=== PATIENT | female | born 1935 | race Caucasian/White ===

== ENCOUNTER 2017-04-20 14:24 | Outpatient (CLI) | payer MEDICARE, OTHER ==
--- NOTE | 2017-04-22 09:04 | DEXA Report ---
DEXA SCAN: 04/20/2017 CLINICAL INDICATION: Postmenopausal osteopenia. TECHNIQUE: Dual energy x-ray absorptiometry (DXA) was performed on a [employer] system. Regions measured are the AP spine, femoral neck, and, if needed, forearm. COMPARISON: None. In accordance with the International Society for Clinical Densitometry (ISCD) guidelines, data from previous exams may be reanalyzed using current recommendations and techniques. This is done to allow a more accurate basis for comparison with the current study. FINDINGS: The data for the lumbar spine is as follows: REGION BMD (g/cm/cm) T-SCORE Z-SCORE L1 0.888 -2.0 0.2 L2 0.984 -1.8 0.4 L3 0.994 -1.7 0.5 L4 0.742 -3.8 -1.6 TOTAL 0.903 -2.3 -0.1 NOTE: All evaluable vertebrae are used for classification. The data for the hip is as follows: REGION BMD (g/cm/cm) T-SCORE Z-SCORE Neck 0.742 -2.1 0.3 TOTAL 0.761 -2.0 0.3 NOTE: The femoral neck or total proximal femur, whichever is lowest, is used for classification. * Denotes significant change at the 95% confidence level. Denotes dissimilar scan types or analysis methods. IMPRESSION: THE WHO CLASSIFICATION BASED ON THE INTERNATIONAL REFERENCE STANDARD IS OSTEOPENIA. THE FRACTURE RISK IS INCREASED. RECOMMENDATION: Patients with diagnosis of osteoporosis or osteopenia should have regular bone mineral density assessment. For those eligible for Medicare, routine testing is allowed once every 2 years. Testing frequency can be increased for patients who have rapidly progressing disease or for those who are receiving medical therapy to restore bone mass. COMMENT: World Health Organization (WHO) definitions for osteoporosis and osteopenia: NORMAL BMD: T-score at -1.0 or higher, fracture risk is low. OSTEOPENIA BMD: T-score between -1.0 and -2.5, fracture risk is increased. OSTEOPOROSIS BMD: T-score at -2.5 or lower, fracture risk high. National Osteoporosis Foundation recommends: 1. Obtain adequate dietary calcium (at least 1200 mg per day) and vitamin D (400 -800 international units per day). 2. Participate, as appropriate, in regular weightbearing and muscle- strengthening exercise. 3. Avoid tobacco use and reduce alcohol and caffeine intake. 4. For more detailed information see the website at www.NOF.org. MTDD
== END 2017-04-20 14:25 | disposition home or self-care (01) ==
LOC: DI 14:24
PROVIDERS: ATTEND Internal Medicine
DX: M85.89 Other specified disorders of bone density and structure, multiple sites (principal)
CPT/HCPCS: 77080

== ENCOUNTER 2018-12-20 11:31 | Outpatient (CLI) | payer MEDICARE | END 2018-12-20 11:32 | disposition critical access hospital (66) | LOC: EMS 11:31 | PROVIDERS: ATTEND Surgery | DX: R41.0 Disorientation, unspecified (principal); R19.7 Diarrhea, unspecified; R42 Dizziness and giddiness | CPT/HCPCS: A0425; A0427 ==

== ENCOUNTER 2018-12-20 12:05 | Emergency (ER) | payer MEDICARE, OTHER ==
[2018-12-20 13:01] LABS: GLUCOSE, URINE (UA) 250 mg/dL (NEGATIVE); KETONES,URINE (UA) >=80 mg/dL (NEGATIVE); LEUKOCYTE ESTERASE, URINE NEGATIVE (NEGATIVE); NITRITE,URINE NEGATIVE (NEGATIVE); OCCULT BLOOD,URINE SMALL (NEGATIVE); PH,URINE 5.5 PH (5.0-7.5); PROTEIN,URINE TRACE mg/dL (NEGATIVE); UROBILINOGEN,URINE 0.2 (NORMAL) E.U./dL (NORMAL)
[2018-12-20] MEDS ORDERED: SODIUM CHLORIDE 0.9% 1,000 ML IV ONE (13:13)
[2018-12-20 13:15] LABS: BASOPHILS % (AUTO) 0.6 %; EOSINOPHILS % (AUTO) 0.1 %; HGB - HEMOGLOBIN 12.7 g/dL (12.0-16.0); LYMPHOCYTES # (AUTO) 1.2 10^3/uL (1.5-3.5); LYMPHOCYTES % (AUTO) 35.7 %; MEAN CORPUSCULAR HEMOGLOBIN 30.3 pg (27.0-31.0); MEAN CORPUSCULAR HGB CONC 34.8 g/dL (32.0-36.0); MEAN CORPUSCULAR VOLUME 87.1 fL (81.0-99.0); MEAN PLATELET VOLUME 7.5 fL (7.9-10.8); MONOCYTES # (AUTO) 0.5 10^3/uL (0.0-1.0); MONOCYTES % (AUTO) 13.5 %; NEUTROPHILS # (AUTO) 1.7 10^3/uL (1.5-6.6); NEUTROPHILS % (AUTO) 50.1 %; PLT - PLATELET COUNT 146 10^3/uL (130-450); RED BLOOD COUNT 4.19 10^6/uL (4.20-5.40); RED CELL DISTRIBUTION WIDTH 12.1 % (12.0-15.0); WHITE BLOOD COUNT 3.5 x10^3/uL (4.8-10.8)
[2018-12-20 13:16] LABS: CLARITY,URINE HAZY (CLEAR)
[2018-12-20 13:22] LABS: BILIRUBIN,URINE NEGATIVE (NEGATIVE); ICTOTEST,URINE NEGATIVE
[2018-12-20 13:30] LABS: ALBUMIN 3.8 g/dL (3.2-5.5); ALBUMIN/GLOBULIN RATIO 1.1 (1.0-2.2); BILIRUBIN,TOTAL 0.8 mg/dL (0.2-1.0); CALCIUM 8.6 mg/dL (8.5-10.3); CREATININE 0.6 mg/dL (0.4-1.0); TOTAL PROTEIN 7.2 g/dL (6.7-8.2)
--- NOTE | 2018-12-20 13:39 | ED Physician Documentation ---
PD HPI ALTERED MENTAL STATUS - Stated complaint Stated Complaint: ALOC - Chief complaint Chief Complaint: Neuro - History obtained from History obtained from: Patient, EMS - History of Present Illness Timing - onset: Today Quality / character: Less responsive, Confused Contributing factors: Known psych illness (Bipolar disorder.) Basline status: Alert and oriented X 3, Ambulatory Treatment [employer]: D50 Similar symptoms before: Has not had sx before - Treatment prior to arrival Treatment prior to arrival: D50W IV. - Additional information Additional information: The patient is an 83-year-old female who arrives via ambulance after she was found this morning by her son to be confused and less responsive than usual. Her , who normally helps her with her medications was hospitalized 2 days ago, and the patient has been alone in their home since that time. She has a history of bipolar disorder, but has not taken her medication for the past 2 days. She also has not been eating, and reports that she has felt cold. When paramedics arrived they found her blood sugar low at 69. They treated her with one half amp of D50 W, and her mental status improved. She does not have history of diabetes. She denies any recent traumatic injury. She denies headache, chest pain, shortness of breath, nausea or vomiting. She denies history of similar symptoms in the past. Review of Systems Constitutional: reports: Chills, Fatigue. denies: Fever Eyes: denies: Decreased vision Ears: denies: Tinnitus/ringing Nose: denies: Congestion Throat: denies: Sore throat Cardiac: denies: Chest pain / pressure Respiratory: denies: Dyspnea, Cough GI: denies: Abdominal Pain, Nausea, Vomiting : denies: Dysuria Skin: denies: Rash Musculoskeletal: denies: Extremity pain Neurologic: reports: Generalized weakness, Altered mental status. denies: Focal weakness, Numbness, Headache PD PAST MEDICAL HISTORY - Past Medical History Cardiovascular: None Respiratory: None Psych: Bipolar disorder - Allergies Allergies/Adverse Reactions: Allergies Allergy/AdvReac Type Severity Reaction Status Date / Time No Known Drug Allergies Allergy Verified 12/20/18 12:19 - Living Situation Living Situation: reports: With spouse/s.o. Living Arrangement: reports: At home - Social History Does the pt smoke?: No Smoking Status: Never smoker PD ED PE NORMAL - Vitals Vital signs reviewed: Yes (normal) - General General: Alert and oriented X 3, Well developed/nourished, Other (Appears slightly drowsy.) - HEENT HEENT: Atraumatic, PERRL, EOMI, Pharynx benign, Other (Buccal mucosa dry.) - Neck Neck: Supple, no meningeal sign, No adenopathy, No JVD - Cardiac Cardiac: RRR, No murmur - Respiratory Respiratory: No respiratory distress, Clear bilaterally - Abdomen Abdomen: Soft, Non tender - Back Back: No CVA TTP - Derm Derm: No rash - Extremities Extremities: No edema, No calf tenderness / cord - Neuro Neuro: Alert and oriented X 3, No motor deficit, No sensory deficit Eye Opening: Spontaneous Motor: Obeys Commands Verbal: Oriented GCS Score: 15 Results - Vitals Vitals: Vital Signs - 24 hr 12/20/18 12/20/18 12/20/18 12:15 12:26 14:18 Temperature 36.3 C L Heart Rate 68 85 68 Respiratory 14 15 14 Rate Blood Pressure 137/82 H 137/82 H 130/68 O2 Saturation 99 97 98 12/20/18 16:00 Temperature Heart Rate 71 Respiratory 14 Rate Blood Pressure 133/65 H O2 Saturation 98 Oxygen O2 Source Room air - EKG (time done) 13:14 Rate: Rate (enter#) (74) Rhythm: NSR, Other (supraventricular bigeminy) [place]: Normal Intervals: Normal SC Ischemia: Non specific changes Computer interpretation: Agree with computer - Labs Labs: Laboratory Tests 12/20/18 12/20/18 12/20/18 12:47 13:07 13:07 WBC 3.5 L RBC 4.19 L Hgb 12.7 Hct 36.5 L MCV 87.1 MCH 30.3 MCHC 34.8 RDW 12.1 Plt Count 146 MPV 7.5 L Neut # (Auto) 1.7 Lymph # (Auto) 1.2 L [place] # (Auto) 0.5 Eos # (Auto) 0.0 Baso # (Auto) 0.0 Absolute Nucleated RBC 0.00 Nucleated RBC % 0.1 Sodium 138 Potassium 3.4 L Chloride 100 L Carbon Dioxide 29 Anion Gap 9.0 BUN 24 H Creatinine 0.6 Estimated GFR (MDRD) 96 Glucose 135 H Calcium 8.6 Total Bilirubin 0.8 AST 44 H ALT 20 Alkaline Phosphatase 48 Total Protein 7.2 Albumin 3.8 Globulin 3.4 Albumin/Globulin Ratio 1.1 Lipase 30 Urine Color YELLOW Urine Clarity HAZY Urine pH 5.5 Ur Specific [place] >=1.030 H Urine Protein TRACE Urine Glucose (UA) 250 H Urine Ketones >=80 H Urine Occult Blood SMALL H Urine Nitrite NEGATIVE Urine Bilirubin NEGATIVE Urine Urobilinogen 0.2 (NORMAL) Ur Leukocyte Esterase NEGATIVE Urine RBC 0-5 Urine WBC 4-5 Ur Squamous Epith Cells FEW Squamous Urine Bacteria Few Urine Mucus Few Strands Ur Microscopic Review INDICATED Urine Culture Comments NOT INDICATED PD MEDICAL DECISION MAKING - ED course Complexity details: reviewed results, re-evaluated patient, considered differential, d/w patient, d/w ux consultant ED course: The patient's presentation is most consistent with altered mental status secondary to hypoglycemic episode and dehydration. Her presentation does not suggest sepsis, meningitis, intracranial hemorrhage, or hypoxemic event. Fingerstick blood sugar upon arrival was greater than 100 after receiving D50 W by medics. Her CBC and chemistry panel are unremarkable except for elevated BUN/creatinine ratio, with a BUN 24 and creatinine 0.6, consistent with dehydration. Urinalysis reveals concentrated urine, and glucose of 250. Treatment in the emergency department included administration of normal saline 1 L IV. Her mental status improved after the above treatment. She diminishes ability to ambulate without lightheadedness. I consulted medical staff assistant regarding disposition. Her is scheduled to be discharged from the hospital tomorrow. It was decided that she could sleep in her 's hospital room overnight until his discharge tomorrow. Departure - Departure Disposition: 01 Home, Self Care Clinical Impression: Hypoglycemia, Dehydration Altered mental status Qualifiers: Altered mental status type: transient alteration of awareness Qualified Code(s): R40.4 - Transient alteration of awareness Condition: Stable Instructions: ED Dehydration, ED Blood Sugar Low Non Diabetic Follow-Up: Shayna Sequeira MD [Provider Admit Priv/Credential] - Comments: Drink plenty of fluids. Continue your other medication as previously prescribed. Follow-up with your primary physician within 1 week. Call to schedule an appointment. Return to the emergency department if you develop worsening symptoms. Discharge Date/Time: 12/20/18 17:50
[2018-12-20 13:44] LABS: BACTERIA,URINE Few /HPF (None Seen); MUCUS,URINE Few Strands; RBC,URINE 0-5 /HPF (0-5); SQUAMOUS EPITHELIAL CELL,UR FEW Squamous (<= Few)
[2018-12-20 17:21] VITALS: BP 133/65
== END 2018-12-20 17:50 | disposition home or self-care (01) ==
LOC: EDUNIT# → ED 12:05
DX: E16.2 Hypoglycemia, unspecified (principal); E86.0 Dehydration; R40.4 Transient alteration of awareness; R94.31 Abnormal electrocardiogram [ECG] [EKG]
CPT/HCPCS: 36415; 80053; 81001; 81003; 83690; 85025; 87086; 93005; 96360; 96361; 99283; 99284

== ENCOUNTER 2019-09-08 09:38 | Outpatient (CLI) | payer MEDICARE ==
[2019-09-08] MEDS ORDERED: GADOBUTROL 7.5 MMOL/7.5 ML VIAL IVP ONE (10:45)
[2019-09-08] MEDS ORDERED: GADOBUTROL 7.5 MMOL/7.5 ML VIAL ONE (10:48)
--- NOTE | 2019-09-08 13:17 | MRI Report ---
Reason: UNSTEADINESS ON FEET, HEMIPLGA FOLLOWING CEREBRAL Procedure Date: 09/08/2019 Accession Number: [id number] / [id number] Procedure: MRI - Brain W/WO CPT Code: FULL RESULT: EXAM: MRI BRAIN WITHOUT AND WITH CONTRAST EXAM DATE: 09/08/2019 10:50 AM. 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 Evaluate for intracranial pathology. COMPARISON: None. TECHNIQUE: Multiplanar, multisequence T1-weighted and fluid-sensitive MR sequences of the brain were performed before and after administration of intravenous contrast. Sequences optimized for routine evaluation. Other: None. IV Contrast: 6 cc Gadavist. FINDINGS: Brain Volume: Mild to moderate cortical volume loss. Parenchyma: No acute parenchymal hemorrhage, mass or midline shift. Moderate to severe confluent bilateral areas of T2/FLAIR signal hyperintensity seen including patchy FLAIR signal hyperdensity within the elsie. Old chronic lacunar infarcts are seen within the right and left cerebellum. No areas of restricted diffusion seen to suggest acute infarct. No abnormal areas of parenchymal susceptibility artifact. No abnormal enhancement. Ventricles/Cisterns: Lateral ventricles and third ventricle appear prominent, question out of proportion for the extent of volume loss. Relative effacement of the sulci near the vertex. No definite abnormal extra-axial fluid collection/mass seen. No abnormal postcontrast enhancement. Orbits: Changes of bilateral lens replacement. [place]: The pituitary gland, cavernous sinuses, suprasellar cistern and optic chiasm are unremarkable. IAC: Symmetric and unremarkable. Vasculature: Normal signal flow void is seen in the major arterial structures at the skull base. The dural sinuses are patent and enhance normally. Sinuses: No acute sinus disease. Bones: No focal pathologic appearing marrow signal changes. Other: None. IMPRESSION: 1. No definite acute infarct, acute intracranial hemorrhage, mass or midline shift. No abnormal postcontrast enhancement. 2. The lateral ventricles and third ventricle appear prominent questionably out of proportion for the extent of volume loss. Clinical correlation for potential normal pressure hydrocephalus is suggested. 3. Old chronic lacunar infarcts are seen involving the right and left cerebellum. There is additional moderate to severe confluent white matter changes seen that, while nonspecific, likely represent sequela of chronic small vessel ischemic disease. RADIA
== END 2019-09-08 09:39 | disposition home or self-care (01) ==
LOC: DI 09:38
PROVIDERS: ATTEND Internal Medicine
DX: R26.81 Unsteadiness on feet (principal); I69.354 Hemiplegia and hemiparesis following cerebral infarction affecting left non-dominant side; R90.82 White matter disease, unspecified; R90.89 Other abnormal findings on diagnostic imaging of central nervous system
CPT/HCPCS: 70553; A9585

== ENCOUNTER 2021-06-23 10:17 | Outpatient (CLI) | payer MEDICARE | END 2021-06-23 23:59 | disposition home or self-care (01) | LOC: LAB.N 10:17 | PROVIDERS: ATTEND Nurse Practitioner | DX: R39.9 Unspecified symptoms and signs involving the genitourinary system (principal) | CPT/HCPCS: 87086 ==

== ENCOUNTER 2022-03-20 09:33 | Outpatient (CLI) | payer MEDICARE ==
[2022-03-20 15:59] LABS: BASOPHILS % (AUTO) 0.5 %; EOSINOPHILS % (AUTO) 0.7 %; HCT - HEMATOCRIT 40.4 % (37.0-47.0); HGB - HEMOGLOBIN 13.1 g/dL (12.0-16.0); LYMPHOCYTES # (AUTO) 1.5 10^3/uL (1.5-3.5); LYMPHOCYTES % (AUTO) 23.9 %; MEAN CORPUSCULAR HEMOGLOBIN 29.2 pg (27.0-31.0); MEAN CORPUSCULAR HGB CONC 32.4 g/dL (32.0-36.0); MEAN PLATELET VOLUME 9.8 fL (7.9-10.8); MONOCYTES # (AUTO) 0.4 10^3/uL (0.0-1.0); MONOCYTES % (AUTO) 7.2 %; NEUTROPHILS # (AUTO) 4.2 10^3/uL (1.5-6.6); NEUTROPHILS % (AUTO) 67.7 %; PLT - PLATELET COUNT 237 10^3/uL (130-450); RED BLOOD COUNT 4.49 10^6/uL (4.20-5.40); RED CELL DISTRIBUTION WIDTH 12.5 % (12.0-15.0); WHITE BLOOD COUNT 6.1 x10^3/uL (4.8-10.8)
[2022-03-20 17:22] LABS: ALBUMIN 4.4 g/dL (3.2-5.5); ALBUMIN/GLOBULIN RATIO 1.3 (1.0-2.2); ALKALINE PHOSPHATASE 81 IU/L (42-121); ALT ALANINE AMINOTRANSFERASE 16 IU/L (10-60); AST ASPARTATE AMINOTRANSFERASE 30 IU/L (10-42); BILIRUBIN,TOTAL 0.5 mg/dL (0.2-1.0); BUN - BLOOD UREA NITROGEN 25 mg/dL (6-20); CALCIUM 9.3 mg/dL (8.5-10.3); CARBON DIOXIDE - CO2 32 mmol/L (21-32); CHLORIDE 102 mmol/L (101-111); CHOL/HDL RATIO 3.6 (<4.4); CHOLESTEROL 214 mg/dL; CREATININE 0.6 mg/dL (0.4-1.0); GFR - MDRD 95 (>89); GLUCOSE 114 mg/dL (70-100); HDL CHOLESTEROL 60 mg/dL; LDL CHOLESTEROL,CALCULATED 139 mg/dL; LDL/HDL RATIO 2.3 (<4.4); POTASSIUM 3.5 mmol/L (3.5-5.0); SODIUM 142 mmol/L (135-145); TOTAL PROTEIN 7.7 g/dL (6.7-8.2); TRIGLYCERIDES 77 mg/dL; VLDL CHOLESTEROL 15 mg/dL
[2022-03-20 20:48] LABS: ESTIMATED AVERAGE GLUCOSE 120 mg/dL (70-100); HEMOGLOBIN A1c% 5.8 % (4.27-6.07)
== END 2022-03-20 23:59 | disposition home or self-care (01) ==
LOC: LAB.R 09:33
PROVIDERS: ATTEND Internal Medicine
DX: Z00.00 Encounter for general adult medical examination without abnormal findings (principal); R26.89 Other abnormalities of gait and mobility; I63.9 Cerebral infarction, unspecified; I10 Essential (primary) hypertension; R68.89 Other general symptoms and signs; Z79.899 Other long term (current) drug therapy
CPT/HCPCS: 80053; 80061; 83036; 83721; 84443; 85025